=== PATIENT | male | born 1940 ===

== ENCOUNTER 2021-11-15 09:25 | Emergency (ER) | payer OTHER ==
[~2021-11-15] VITALS: Ht 165.1 cm; Wt 74.8 kg
[~2021-11-15 09:25] MED LIST: CATAFLAM50 MG PO; ENALAPRIL MALEA20 MG
[2021-11-15] MEDS ORDERED: LEVOFLOXACIN500 MG PO (12:09)
== END 2021-11-15 12:23 | disposition home or self-care (01) ==
LOC: ER 09:25
DX: N39.0 Urinary tract infection, site not specified (principal); R50.9 Fever, unspecified; Z86.79 Personal history of other diseases of the circulatory system; Z20.822 Contact with and (suspected) exposure to COVID-19

== ENCOUNTER 2021-11-21 23:44 | Inpatient (IN) | payer OTHER ==
[~2021-11-21] VITALS: Ht 165.1 cm; Wt 76.2 kg
[~2021-11-21 23:44] MED LIST changes: +LEVOFLOXACIN500 MG PO
[2021-11-24] MEDS ORDERED: AMLODIPINE-BEN1 EACH (10:29)
[2021-11-24] MEDS ORDERED: HYDROCHLOROTH12.5 MG (10:30)
[2021-11-27] MEDS ORDERED: AMOX-CLAV 875-1 EACH PO (12:41)
== END 2021-11-27 13:00 | disposition home or self-care (01) | DRG 445 ==
LOC: ER 23:44 → SURG 11-22 12:31
PROVIDERS: ADMIT Surgery; ATTEND Surgery
PROC: BW2110Z Computerized Tomography (CT Scan) of Abdomen and Pelvis using Low Osmolar Contrast, Unenhanced and Enhanced (ICD-10-PCS; principal; 2021-11-22)
DX: K81.0 Acute cholecystitis (principal); N17.8 Other acute kidney failure; N39.0 Urinary tract infection, site not specified; R10.11 Right upper quadrant pain; R11.2 Nausea with vomiting, unspecified; E86.0 Dehydration

== ENCOUNTER 2022-02-09 12:30 | Inpatient (IN) | payer OTHER ==
[~2022-02-09] VITALS: Ht 165.1 cm; Wt 71.7 kg
[~2022-02-09 12:30] MED LIST changes: +AMLODIPINE-BEN1 EACH; +AMOX-CLAV 875-1 EACH PO; +HYDROCHLOROTH12.5 MG
[2022-02-13] MEDS ORDERED: INTESTINEX680 M1 PO (12:28)
[2022-02-13] MEDS ORDERED: PROTONIX40 MG PO (12:28)
[2022-02-13] MEDS ORDERED: ULTRAM50 MG PO (12:28)
== END 2022-02-13 22:30 | disposition home or self-care (01) | DRG 419 ==
LOC: EDSTATUS 12:30 → ADM 12:30 → O/R 02-12 06:45 → SURH 02-12 08:30
PROVIDERS: ADMIT Surgery; ATTEND Surgery
PROC: BF03YZZ Plain Radiography of Gallbladder and Bile Ducts using Other Contrast (ICD-10-PCS; 2022-02-12)
PROC: 0FT44ZZ Resection of Gallbladder, Percutaneous Endoscopic Approach (ICD-10-PCS; principal; 2022-02-12 08:30)
DX: K80.10 Calculus of gallbladder with chronic cholecystitis without obstruction (principal); Z20.822 Contact with and (suspected) exposure to COVID-19